=== PATIENT | female | born 2000 | race Caucasian/White ===

== ENCOUNTER 2020-02-16 13:34 | Outpatient (CLI) | payer BC ==
--- NOTE | 2020-02-16 15:00 | MRI ---
MRI BRAIN WITH AND WITHOUT CONTRAST: Sella protocol DATE: 02/16/2020 HISTORY: 19-year-old female with headache and "pituitary cyst" TECHNIQUE: Multiplanar, multisequence MRI of the brain obtained pre and post IV injection of gadolinium based co ntrast agent. In addition to standard whole brain sequences, thin slice coronal and sagittal sequences were obtaine d through the sella turcica, including dynamic postcontrast sequences. FINDINGS: The ventricles are normal in size and configuration. There is no midline shift or any other evidence of mass effect. There is no extra-axial fluid collection. There is no intra-axial signal abnormality, abnormal enhancement, mass, recent hemorrhage, or restricted diffusion. There is no Paulino ri I malformation. The craniocaudal dimension of the pituitary gland is smaller than expected for female patient of age 19 years, with mild broad depression of the diaphragma sellae. Infundibular sta lk is at midline and of normal thickness. Irregularly-shaped T1 hyperintense and T2 hypointense ill-defined, irregular region within the pituit lashell gland measuring approximately 2 mm AP x 5 mm craniocaudal x 5 mm transverse. Has decreased enhancement relative to surrounding pituitary. Parenchyma. Optic chiasm and bilateral cavernous sinus es are normal. IMPRESSION: 1) irregularly-shaped small lesion within the pituitary gland. It does not have typical characteristi cs of a cyst or microadenoma. Etiology is uncertain. 2) volume of pituitary gland is slightly small in size for female of this age group. 3.) The brain is normal.
== END 2020-02-16 13:35 | disposition home or self-care (01) ==
LOC: SCSMRI 13:34
PROVIDERS: ATTEND Nurse Practitioner Acute Care
DX: E23.6 Other disorders of pituitary gland (principal)
CPT/HCPCS: 70553